=== PATIENT | male | born 1995 | race Caucasian/White ===

== ENCOUNTER 2021-05-03 22:43 | Emergency (ER) | payer SELFPAY ==
[2021-05-03 23:21] LABS: HEMOGLOBIN 14.7 gm/dl (14.0-17.5); RED BLOOD COUNT 5.17 M/UL (4.20-5.50); WHITE BLOOD COUNT 11.2 K/UL (4.5-11.0)
[2021-05-03 23:50] LABS: BUN/CREATININE RATIO 14 (0-10)
[2021-05-04] MEDS ORDERED: ZOFRAN ODT 4 MG4 MG PO (04:25)
[2021-05-04] MEDS ORDERED: IBUPROFEN600 MG PO (04:25)
== END 2021-05-04 04:48 | disposition home or self-care (01) ==
LOC: ER1 22:43
PROVIDERS: Physician Assistant
DX: R07.81 Pleurodynia (principal); R07.89 Other chest pain; R10.12 Left upper quadrant pain; R11.0 Nausea; Z88.1 Allergy status to other antibiotic agents
CPT/HCPCS: 71046; 71260; 80053; 81001; 83690; 85025; 93005; 99284; Q9967